=== PATIENT | female | born 1965 | race Caucasian/White ===

== ENCOUNTER 2023-12-19 22:56 | Inpatient (IN) | payer OTHER ==
[~2023-12-19] VITALS: Ht 160 cm
[2023-12-19] MEDS ORDERED: Midazolam Hydrochloride 5 MG/ML VIAL INH ONE (23:35)
[2023-12-20 00:08] LABS: BASO # 0.1 10*3/uL (0.0-0.1); BASO % 0.5 % (0.0-1.0); EOS # 0.1 10*3/uL (0.0-0.4); HEMATOCRIT 45.7 % (37.0-47.0); LYMPH # 2.2 10*3/uL (1.3-4.4); LYMPH % 23.9 % (27.0-41.0); MEAN CELL VOLUME 89.1 fl (81.0-99.0); MEAN CORPUSCULAR HGB CONC 33.7 g/dl (33.0-37.0); MEAN PLATELET VOLUME 11.6 fl (9.6-12.3); MONO % 10.3 % (3.0-9.0); NEUT % 64.1 % (47.0-73.0); PLATELET COUNT AUTOMATED 258 10*3/uL (130-400); RED BLOOD COUNT 5.13 10*6/uL (4.10-5.10); RED CELL DISTRI WIDTH 11.9 % (0-14.5); WHITE BLOOD COUNT 9.4 10*3/uL (4.8-10.8)
[2023-12-20 00:29] LABS: ALKALINE PHOSPHATASE 63 U/L (46-116); BUN 8 mg/dl (9-23); CHLORIDE 105 mmol/L (98-107); CPK 112 U/L (34-171); POTASSIUM 4.8 mmol/L (3.4-5.1); SGPT/ALT 7 U/L (5-49); TOTAL PROTEIN 7.3 gm/dL (6.0-8.0)
[2023-12-20 00:30] LABS: ETHYL ALCOHOL < 3.0 mg/dl (<3)
[2023-12-20 00:56] VITALS: BP 141/81
[2023-12-20 00:59] LABS: BILIRUBIN Negative (Negative); BLOOD Negative (Negative); CLARITY Clear (Clear); COLOR Yellow (Yellow); GLUCOSE Negative (Negative); KETONE 3+ (Negative); LEUKO ESTERASE Negative (Negative); NITRITE Negative (Negative); PH 5.5 (4.5-8.0); SPECIFIC GRAVITY 1.025 (1.001-1.030)
[2023-12-20 01:07] LABS: URINE AMPHETAMINES Negative (1000ng/ml); URINE BARBITURATES Negative (200ng/ml); URINE BENZODIAZEPINES Positive (200ng/ml); URINE CANNABINOIDS (THC) Positive (50ng/ml); URINE COCAINE Negative (300ng/ml); URINE METHADONE Negative (300ng/ml); URINE OPIATES Negative (300ng/ml); URINE PHENCYCLIDINE Negative (25ng/ml)
[2023-12-20 01:10] LABS: FINE GRANULAR CAST 0-2; MUCOUS 2+; RBC 0-2 rbc/hpf (0-2)
[2023-12-20] MEDS ORDERED: LORazepam 1 MG TAB PO PRN (05:55)
[2023-12-20] MEDS ORDERED: Ziprasidone Mesylate 20 MG VIAL IM PRN (05:55)
[2023-12-20] MEDS ORDERED: MG-AL HYDROXIDE/SIMETICONE 30 ML UDC PO PRN (06:00)
[2023-12-20] MEDS ORDERED: ACETAMINOPHEN 325 MG TAB PO PRN (06:00)
[2023-12-20] MEDS ORDERED: Magnesium Hydroxide 30 ML UDC PO PRN (06:00)
[2023-12-20] MEDS ORDERED: Menthol/Zinc Oxide 4 GM THIN T PRN (06:05)
[2023-12-20 06:48] LABS: ALKALINE PHOSPHATASE 70 U/L (46-116); BUN 8 mg/dl (9-23); CHLORIDE 105 mmol/L (98-107); CHOLESTEROL 276 mg/dL (<200); LDL CHOLESTEROL 195 mg/dL (9-159); POTASSIUM 4.2 mmol/L (3.4-5.1); SGPT/ALT 7 U/L (5-49); TRIGLYCERIDES 126 mg/dl (<150)
[2023-12-20] MEDS ORDERED: RISPERIDONE 0.5 MG TAB PO SCH (09:00)
[2023-12-20 09:42] LABS: BASO % 0.4 % (0.0-1.0); EOS # 0.1 10*3/uL (0.0-0.4); EOS % 1.2 % (1.0-4.0); HEMATOCRIT 44.8 % (37.0-47.0); LYMPH # 2.1 10*3/uL (1.3-4.4); LYMPH % 23.3 % (27.0-41.0); MEAN CELL VOLUME 89.1 fl (81.0-99.0); MEAN CORPUSCULAR HGB 29.8 pg (27.0-31.0); MEAN CORPUSCULAR HGB CONC 33.5 g/dl (33.0-37.0); MEAN PLATELET VOLUME 11.6 fl (9.6-12.3); MONO # 0.9 10*3/uL (0.1-1.0); MONO % 9.7 % (3.0-9.0); NEUT # 5.8 10*3/uL (2.3-7.9); NEUT % 65.2 % (47.0-73.0); PLATELET COUNT AUTOMATED 247 10*3/uL (130-400); RED BLOOD COUNT 5.03 10*6/uL (4.10-5.10); RED CELL DISTRI WIDTH 11.9 % (0-14.5); WHITE BLOOD COUNT 8.9 10*3/uL (4.8-10.8)
[2023-12-20] MEDS ORDERED: RISPERIDONE 1 MG ODT BC ONE (09:45)
[2023-12-20 10:37] LABS: VITAMIN D, 25-HYDROXY 32.8 ng/mL (30-100)
[2023-12-20] MEDS ORDERED: Water, Sterile 10 ML VIAL ONE (12:46)
[2023-12-20 20:00] VITALS: BP 150/63
[2023-12-20] MEDS ORDERED: RISPERIDONE 1 MG ODT BC SCH (21:00)
[2023-12-20] MEDS ORDERED: Mirtazapine 15 MG TAB PO SCH (21:00)
[2023-12-21 08:19] VITALS: BP 126/69
[2023-12-21] MEDS ORDERED: ATORVASTATIN CALCIUM 20 MG TAB PO SCH (09:00)
[2023-12-21] MEDS ORDERED: RISPERIDONE 1 MG TAB PO SCH (13:00)
[2023-12-21 20:00] VITALS: BP 124/59
[2023-12-22 07:37] VITALS: BP 120/64
[2023-12-22] MEDS ORDERED: PALIPERIDONE PALMITATE 156 MG INJECTION IM ONE (10:10)
[2023-12-22 20:00] VITALS: BP 124/60
[2023-12-23 07:36] VITALS: BP 134/63
[2023-12-23 19:12] VITALS: BP 105/56
[2023-12-24 07:55] VITALS: BP 133/57
[2023-12-24 20:00] VITALS: BP 144/62
[2023-12-25 07:44] VITALS: BP 112/63
[2023-12-25] MEDS ORDERED: PALIPERIDONE PALMITATE 156 MG INJECTION IM ONE (09:15)
[2023-12-25] MEDS ORDERED: PALIPERIDONE PALMITATE 156 MG INJECTION IM SCH (10:15)
[2023-12-25 19:01] VITALS: BP 133/65
[2023-12-26 07:38] VITALS: BP 127/69
[2023-12-26] MEDS ORDERED: ATORVASTATIN CA20 M1 PO (08:28)
[2023-12-26] MEDS ORDERED: MIRTAZAPINE15 M2 PO (10:20)
[2023-12-26] MEDS ORDERED: INVEGA SUSTENN156 MG IM (10:20)
== END 2023-12-26 12:34 | disposition home or self-care (01) | DRG 750 ==
LOC: ED 22:56 → 3N 12-20 05:13
PROVIDERS: Emergency Medicine; ADMIT Psychiatry & Neurology Psychiatry; ATTEND Psychiatry & Neurology Psychiatry
PROC: GZHZZZZ Group Psychotherapy (ICD-10-PCS; principal; 2023-12-20)
PROC: GZ56ZZZ Individual Psychotherapy, Supportive (ICD-10-PCS; 2023-12-20)
DX: F25.0 Schizoaffective disorder, bipolar type (principal); F23 Brief psychotic disorder; F12.90 Cannabis use, unspecified, uncomplicated; F13.10 Sedative, hypnotic or anxiolytic abuse, uncomplicated; Z79.899 Other long term (current) drug therapy; Z86.73 Personal history of transient ischemic attack (TIA), and cerebral infarction without residual deficits